=== PATIENT | male | born 1980 | race Hispanic/Latino ===

== ENCOUNTER 2020-09-23 02:40 | Emergency (ER) | payer OTHER ==
[2020-09-23 03:36] LABS: Absolute Lymphocytes (CBC) 1.8 K/uL (0.7-4.9); Basophils % 0.7 % (0-1.3); Hematocrit 42.9 % (39.6-49.0); Lymphocytes % 25.8 % (15.3-44.8); MPV 7.2 fL (7.6-11.3); RBC Red Blood Cell Count 4.83 M/uL (4.33-5.43)
[2020-09-23 03:45] LABS: BUN Blood Urea Nitrogen 19 mg/dL (7-18); Bicarbonate 28 mmol/L (21-32); Glucose Level 96 mg/dL (74-106); NT PRO-BNP 20 pg/mL (<125); Sodium Level 139 mmol/L (136-145); Troponin (Emerg Dept Use Only) < 0.02 ng/mL (0.0-0.045)
--- NOTE | 2020-09-23 04:00 | ER ---
Nurse's Notes [facility] Name: Davonte Ramon Age: 39 yrs Sex: Male : 1980 Arrival Date: 09/23/2020 Time: 02:45 Bed 18 Private MD: Diagnosis: Chest pain, unspecified Presentation: 09/23 03:02 Chief complaint: Patient states: i have chest pain radiating to my upper back in mg2 between my shoulder blades since 2 am tonight. i had heavy workout yesterday. Coronavirus screen: Client denies travel out of the [place] in the last 14 days. At this time, the client does not indicate any symptoms associated with coronavirus-19. Ebola Screen: No symptoms or risks identified at this time. Initial Sepsis Screen: Does the patient meet any 2 criteria? No. Patient's initial sepsis screen is negative. Does the patient have a suspected source of infection? No. Patient's initial sepsis screen is negative. Risk Assessment: Do you want to hurt yourself or someone else? Patient reports no desire to harm self or others. Onset of symptoms was September 23, 2020. 03:02 Method Of Arrival: Ambulatory mg2 03:02 Acuity: MARKELL 3 mg2 Triage Assessment: 03:14 General: Appears in no apparent distress. comfortable, Behavior is calm, cooperative. mg2 Pain: Complains of pain in chest Pain radiates to back Pain currently is 1 out of 10 on a pain scale. Quality of pain is described as aching, Pain began gradually, 1 hour ago. EENT: No signs and/or symptoms were reported regarding the EENT system. Neuro: Level of Consciousness is awake, alert, obeys commands, Oriented to person, place, time, situation. Cardiovascular: Capillary refill < 3 seconds Patient's skin is warm and dry. Cardiovascular: Reports chest pain. Respiratory: Airway is patent Respiratory effort is even, unlabored, Respiratory pattern is regular, symmetrical. GI: No signs and/or symptoms were reported involving the gastrointestinal system. : No signs and/or symptoms were reported regarding the genitourinary system. Derm: Skin is intact, is healthy with good turgor, Skin is pink, warm \T\ dry. normal. Musculoskeletal: Circulation, motion, and sensation intact. Capillary refill < 3 seconds. Historical: - Allergies: 03:15 No Known Allergies; mg2 - Home Meds: 03:15 Fluoxetine Oral [Active]; mg2 - PMHx: 03:15 Anxiety; mg2 - PSHx: 03:15 knee sx; mg2 - Immunization history:: Flu vaccine status is unknown. - Social history:: Smoking status: unknown. - Family history:: not pertinent. - Hospitalizations: : No recent hospitalization is reported. Screenin:16 Abuse screen: Denies threats or abuse. Denies injuries from another. Nutritional mg2 screening: No deficits noted. Tuberculosis screening: No symptoms or risk factors identified. Fall Risk IV access (20 points). Assessment: 03:15 Reassessment: see triage note. mg2 04:20 Reassessment: Patient appears in no apparent distress at this time. Patient is alert, mg2 oriented x 3, equal unlabored respirations, skin warm/dry/pink. Vital Signs: 03:02 BP 126 / 87; Pulse 62; Resp 18; Temp 97.9; Pulse Ox 97% on R/A; mg2 04:20 BP 109 / 74; Pulse 60; Resp 18; Temp 98; Pulse Ox 100% on R/A; mg2 ED Course: 02:45 Patient arrived in ED. cl3 02:50 Keyon Benavidez MD is Attending Physician. rn 02:54 Hussain Hays, APARNA is Primary Nurse. mg2 03:02 Triage completed. mg2 03:15 Arm band placed on. mg2 03:16 Patient has correct armband on for positive identification. quality assurance monitor chassis on. Pulse mg2 ox on. NIBP on. Door closed. 03:16 No provider procedures requiring assistance completed. Inserted saline lock: 20 gauge mg2 in right antecubital area, using aseptic technique. Blood collected. 03:16 Patient maintains SpO2 saturation greater than 95% on room air. mg2 03:53 XRAY Chest (1 view) In Process Unspecified. EDMS 04:20 IV discontinued, intact, bleeding controlled, No redness/swelling at site. Pressure mg2 dressing applied. Administered Medications: No medications were administered Outcome: 03:59 Discharge ordered by . rn 04:21 Discharged to home ambulatory. mg2 04:21 Condition: stable 04:21 Discharge instructions given to patient, Instructed on discharge instructions, follow up and referral plans. Demonstrated understanding of instructions, follow-up care. 04:21 Patient left the ED. mg2 Signatures: Dispatcher [employer] EDMS Benavidez, Keyon, MD MD rn Hussain Hays RN RN mg2 Marixa Gray cl3 Corrections: (The following items were deleted from the chart) 03: 03:02 Chief complaint: Patient states: i have chest pain mg2 mg2 03:14 03:02 BP 126 / 87; Pulse 62bpm; Resp 18bpm; Pulse Ox 97% RA; mg2 mg2
--- NOTE | 2020-09-23 04:00 | EDPHYS ---
Physician Documentation [facility] Name: Davonte Ramon Age: 39 yrs Sex: Male : 1980 Arrival Date: 09/23/2020 Time: 02:45 Bed 18 Private MD: ED Physician Keyon Benavidez HPI: 09/23 03:16 This 39 yrs old Male presents to ER via Ambulatory with complaints of Chest rn Pain. 03:16 The patient or guardian reports chest pain that is located primarily in the substernal rn area. The pain does not radiate. Associated signs and symptoms: Pertinent negatives: abdominal pain, cough, diaphoresis, dizziness, headache, shortness of breath, syncope, vomiting. The chest pain is described as aching. Duration: The patient or guardian reports a single episode, that is still ongoing. Modifying factors: The symptoms are alleviated by nothing. the symptoms are aggravated by nothing. Severity of pain: At its worst the pain was mild in the emergency department the pain has improved. The patient has experienced a previous episode. The patient has not recently seen a physician. Reports left sided chest pain, dull/achy, not worse with palpation or movement, no fever, doesn't feel ill, no cough/sob. Reports works out a lot and practiced [employer] yesterday. Multiple family members with cardiac problems so decided to play it safe and come in. Already improving on its own. . Historical: - Allergies: 03:15 No Known Allergies; mg2 - Home Meds: 03:15 Fluoxetine Oral [Active]; mg2 - PMHx: 03:15 Anxiety; mg2 - PSHx: 03:15 knee sx; mg2 - Immunization history:: Flu vaccine status is unknown. - Social history:: Smoking status: unknown. - Family history:: not pertinent. - Hospitalizations: : No recent hospitalization is reported. ROS: 03:16 Constitutional: Negative for fever, chills, and weight loss, Eyes: Negative for injury, rn pain, redness, and discharge, Neck: Negative for injury, pain, and swelling, Cardiovascular: + chest pain, neg for palpitations Respiratory: Negative for shortness of breath, cough, wheezing, and pleuritic chest pain, Abdomen/GI: Negative for abdominal pain, nausea, vomiting, diarrhea, and constipation, Back: Negative for injury and pain, MS/Extremity: Negative for injury and deformity, Skin: Negative for injury, rash, and discoloration, Neuro: Negative for headache, weakness, numbness, tingling, and seizure. Exam: 03:16 Constitutional: This is a well developed, well nourished patient who is awake, alert, rn and in no acute distress. Head/Face: Normocephalic, atraumatic. Chest/axilla: Normal chest wall appearance and motion. Nontender with no deformity. No lesions are appreciated. Cardiovascular: Regular rate and rhythm. No pulse deficits. Respiratory: No increased work of breathing, no retractions or nasal flaring. Abdomen/GI: soft, non-tender Skin: Warm, dry with normal turgor. Normal color with no rashes, no lesions, and no evidence of cellulitis. MS/ Extremity: Pulses equal, no cyanosis. Neurovascular intact. Full, normal range of motion. Equal circumference. Neuro: Awake and alert, GCS 15 Vital Signs: 03:02 BP 126 / 87; Pulse 62; Resp 18; Temp 97.9; Pulse Ox 97% on R/A; mg2 04:20 BP 109 / 74; Pulse 60; Resp 18; Temp 98; Pulse Ox 100% on R/A; mg2 MDM: 02:50 Patient medically screened. rn 03:57 Differential diagnosis: chest wall pain, costochondritis, esophagitis, gastritis, rn gastroesophageal reflux disease (GERD), pleurisy, pneumothorax, pulmonary embolus, chest wall pain, muscular injury, strain. Data reviewed: vital signs, nurses notes, lab test result(s), EKG, radiologic studies, plain films, and as a result, I will discharge patient. Counseling: I had a detailed discussion with the patient and/or guardian regarding: the historical points, exam findings, and any diagnostic results supporting the discharge/admit diagnosis, lab results, radiology results, the need for outpatient follow up, to return to the emergency department if symptoms worsen or persist or if there are any questions or concerns that arise at home. Special discussion: I discussed with the patient/guardian in detail that at this point there is no indication for admission to the hospital. It is understood, however, that if the symptoms persist or worsen the patient needs to return immediately for re-evaluation. 09/23 02:59 Order name: Basic Metabolic Panel rn 09/23 02:59 Order name: CBC with Diff; Complete Time: 03:56 rn 09/23 02:59 Order name: NT PRO-BNP; Complete Time: 03:56 rn 09/23 02:59 Order name: Troponin (emerg Dept Use Only); Complete Time: 03:56 rn 09/23 02:59 Order name: D-Dimer; Complete Time: 03:56 rn 09/23 02:59 Order name: Basic Metabolic Panel; Complete Time: 03:56 EDMS 09/23 02:59 Order name: XRAY Chest (1 view) rn 09/23 02:59 Order name: EKG; Complete Time: 02:59 rn 09/23 02:59 Order name: Cardiac monitoring; Complete Time: 03:18 rn 09/23 02:59 Order name: EKG - Nurse/Tech; Complete Time: 03:18 rn 09/23 02:59 Order name: IV Saline Lock; Complete Time: 03:18 rn 09/23 02:59 Order name: Labs collected and sent; Complete Time: 03:18 rn 09/23 02:59 Order name: O2 Per Protocol; Complete Time: 03:18 rn 09/23 02:59 Order name: O2 Sat Monitoring; Complete Time: 03:18 rn Administered Medications: No medications were administered Disposition: 09/23/20 03:59 Discharged to Home. Impression: Chest pain, unspecified. - Condition is Stable. - Discharge Instructions: Nonspecific Chest Pain, Chest Wall Pain. - Medication Reconciliation Form, Thank You Letter, Antibiotic Education, Prescription Opioid Use form. - Follow up: Private Physician; When: As needed; Reason: Recheck today's complaints, Re-evaluation by your physician. - Problem is new. - Symptoms have improved. Signatures: Dispatcher [employer] EDMS Keyon Benavidez MD MD rn Gardose, Michele, RN RN mg2 Corrections: (The following items were deleted from the chart) 04:21 03:59 09/23/2020 03:59 Discharged to Home. Impression: Chest pain, unspecified. mg2 Condition is Stable. Forms are Medication Reconciliation Form, Thank You Letter, Antibiotic Education, Prescription Opioid Use. Follow up: Private Physician; When: As needed; Reason: Recheck today's complaints, Re-evaluation by your physician. Problem is new. Symptoms have improved. rn
--- NOTE | 2020-09-23 06:52 | EKG ---
Test Date: 2020-09-23 Test Time: 03:04:46 Terminal Operations Supervisor: AMY MEASUREMENT RESULTS: Intervals: Rate: 64 OR: 174 QRSD: 82 QT: 382 QTc: 394 [place]: P: 57 OR: 174 QRS: 51 T: 74 INTERPRETIVE STATEMENTS: Normal sinus rhythm Nonspecific T wave abnormality Abnormal ECG Compared to ECG 11/08/2012 10:05:05 T-wave abnormality now present Electronically Signed On 09-23-20 06:51:20 CDT by Ritchie Robles
--- NOTE | 2020-09-23 13:47 | RAD REPORT ---
EXAM DESCRIPTION: RAD - Chest Single View - 09/23/2020 3:53 am COMPARISON: None. CLINICAL HISTORY: [facility] MAIN CHEST PAIN FINDINGS: A single AP view of the chest demonstrates a normal cardiomediastinal silhouette. No pneumothorax or pleural effusion. No consolidation or pulmonary edema. Osseous structures are intact. IMPRESSION: No acute chest process. Electronically signed by: Jet Lizarraga MD 09/23/2020 4:01 AM CDT Due to temporary technical issues with the PACS/Fluency reporting system, reports are being signed by the in house radiologists without review as a courtesy to insure prompt reporting. The interpreting radiologist is fully responsible for the content of the report.
[2020-09-23 16:29] VITALS: BP 109/74; TEMP 98; O2SAT 100
== END 2020-09-23 04:21 | disposition home or self-care (01) ==
LOC: ER 02:40
DX: R07.9 Chest pain, unspecified (principal); F41.9 Anxiety disorder, unspecified
CPT/HCPCS: 36415; 71045; 80048; 83880; 84484; 85025; 85379; 93005; 99285

== ENCOUNTER 2023-03-28 22:21 | Emergency (ER) | payer OTHER, SELFPAY ==
--- OUTSIDE RECORDS SUMMARY | 2023-03-28 22:24 | XMS REPORT | Continuity of Care Document ---
:1980 [address] [facility] t Address [address] [place] [address] [place] [id number] Care Team Providers Name Role Phone ADONIS MILLER Attending Clinician Unavailable LAB90 Attending Clinician Unavailable KAYODE SHAFER Attending Clinician Unavailable PARRIS WALKER Attending Clinician Unavailable Payers Payer Name Policy Type Policy Number Effective Date Expiration Date S fanny [employer] 9 [id number] 2022 BRONZE: O ON 00:00:00 STANDARD Problems This patient has no known problems. Allergies, Adverse Reactions, Alerts This patient has no known allergies or adverse reactions. Medications This patient has no known medications. Procedures This patient has no known procedures. Encounters Start End Encounter Admission Attending Care Care Encounter Source Date/Time Date/Time Type Type Clinicians Facility Department ID 2023-05-11 2023-05-11 Outpatient CHARLINE MILLER [id number] [place] 09:30:00 09:30:00 ADONIS cummings 2023-02-05 2023-02-05 Outpatient LAB90 CHARLINE OLIVIER [id number] [place] 11:50:00 11:50:00 Jairo cummings 2023-02-05 2023-02-05 Outpatient CHARLINE SHAFER [id number] [place] 11:00:00 11:00:00 KAYODE cummings 2022-12-19 2022-12-19 Outpatient CHARLINE WALKER [id number] [place] 09:15:00 09:15:00 PARRIS cummings Results This patient has no known results.
[2023-03-28] MEDS ORDERED: CEPHALEXIN 250 MG CAP ONE (22:51)
[2023-03-28] MEDS ORDERED: KETOROLAC 30 MG/ML INJ ONE (22:51)
[2023-03-28] MEDS ORDERED: SMZ./TMP. 800/160 MG TABLET ONE (22:53)
--- NOTE | 2023-03-28 23:37 | EDPHYS ---
Physician Documentation [facility] Name: Davonte Ramon Age: 42 yrs Sex: Male : 1980 Arrival Date: 03/28/2023 Time: 22:21 Bed 6 Private MD: ED Physician Gulshan Rose HPI: 03/28 22:56 This 42 yrs old Male presents to ER via Ambulatory with complaints of Knee kb Pain. 22:56 the patient presents with a swollen area of the right knee. Description: erythematous, kb swollen. Onset: The symptoms/episode began/occurred yesterday. Possible cause(s): unknown. Associated signs and symptoms: Pertinent positives: erythema, swelling, Pertinent negatives: fever. Modifying factors: the symptoms are alleviated by nothing, the symptoms are aggravated by pressure. Severity of symptoms: At their worst the symptoms were moderate, in the emergency department the symptoms are unchanged. The patient has not experienced similar symptoms in the past. The patient has not recently seen a physician. Pt reports right knee pain that started yesterday. States he has had increased swelling and redness to knee today. Was in a grappling match over the weekend so he isn't sure if he injured his knee or got an infection from the mats. . Historical: - Allergies: 22:35 No Known Allergies; cm10 - PMHx: 22:35 Anxiety; cm10 - Immunization history:: Adult Immunizations up to date. - Social history:: Smoking status: Patient denies any tobacco usage or history of. ROS: 22:54 Constitutional: Negative for fever, chills, and weight loss, kb 22:54 MS/extremity: Positive for pain, 22:54 Skin: Positive for erythema, swelling, of the right knee, 22:54 All other systems are negative, Exam: 22:54 Constitutional: This is a well developed, well nourished patient who is awake, alert, kb and in no acute distress. Head/Face: Normocephalic, atraumatic. ENT: Moist Mucous membranes Cardiovascular: Regular rate Respiratory: Respirations even and unlabored. No increased work of breathing. Talking in full sentences MS/ Extremity: Pulses equal, no cyanosis. Neurovascular intact. Full, normal range of motion. Neuro: Awake and alert, GCS 15, oriented to person, place, time, and situation. Moves all extremities. Normal gait. 22:54 Skin: cellulitis, that is moderate, on the right knee, Vital Signs: 22:34 BP 129 / 81; Pulse 75; Resp 16 S; Temp 97.9(O); Pulse Ox 100% on R/A; Weight 97.52 kg cm10 (R); Height 5 ft. 10 in. (R); Pain 10; 03/29 00:00 BP 126 / 68; Pulse 71; Resp 16; Pulse Ox 100% on R/A; jb4 03/28 22:34 Body Mass Index 30.85 (97.52 kg, 177.8 cm) cm10 03/28 22:34 Pain Scale: Adult cm10 MDM: 03/28 22:27 Patient medically screened. kb 22:51 Differential diagnosis: contusion, fracture, cellulitis, joint infection. Data kb reviewed: vital signs, nurses notes. Test considered but Not performed: Labs: cbc, bmp considered, but pt is nontoxic in appearance and afebrile. 22:59 ED course: Pt has no pain in the joint, septic joint not expected at this time. Full kb ROM, but feels tightness to skin when he bends the knee. 23:21 Counseling: I had a detailed discussion with the patient and/or guardian regarding the kb historical points, exam findings, and any diagnostic results supporting the discharge/admit diagnosis, radiology results, the need for outpatient follow up, a family practitioner, to return to the emergency department if symptoms worsen or persist or if there are any questions or concerns that arise at home. 03/28 22:30 Order name: Knee Right 3 View XRAY kb Administered Medications: 22:43 Drug: Trimethoprim-Sulfamethoxazole PO (160 mg-800 mg (DS) 1 tablet PO once Route: PO; bp 22:43 Drug: Ketorolac IM 30 mg IM once Route: IM; Site: right deltoid; bp 22:44 Drug: Cephalexin PO 500 mg PO once Route: PO; bp Disposition: 03/29 00:09 Co-signature as Attending Physician, Gulshan Rose MD I agree with the assessment sp4 and plan of care. I reviewed the patient's care provided by the Advanced Practice Provider and agree with the diagnosis and treatment plan. Disposition Summary: 03/28/23 23:36 Discharge Ordered Notes: Location: Home kb Condition: Stable kb Diagnosis - Cellulitis of right lower limb kb Followup: kb - With: Emergency Department - When: As needed - Reason: Worsening of condition Followup: kb - With: Private Physician - When: 2 - 3 days - Reason: Recheck today's complaints, Continuance of care, Re-evaluation by your physician Discharge Instructions: - Discharge Summary Sheet kb - Cellulitis, Adult, [id number] kb Forms: - Medication Reconciliation Form kb - Thank You Letter kb - Antibiotic Education kb - Prescription Opioid Use kb - Patient Portal Instructions kb - Leadership Thank You Letter kb Prescriptions: - Cephalexin 500 mg Oral Capsule - take 1 capsule ORAL route every 8 hours for 10 days; 30 capsule; Refills: 0, kb Product Selection Permitted - Diclofenac Sodium 75 mg Oral tablet, delayed release (enteric coated) - take 1 tablet ORAL route 2 times per day As needed; 30 tablet; Refills: 0, kb Product Selection Permitted - Bactrim DS 800-160 mg Oral Tablet - take 1 tablet ORAL route every 12 hours for 10 days; 20 tablet; Refills: 0, kb Product Selection Permitted Signatures: Dispatcher [employer] EDShae Smith, EMPLOYEE HEALTH NURSE-C EMPLOYEE HEALTH NURSE-Cooper Ramirez, RN RN bp Gulshan Rose MD MD sp4 Rosa Elena London RN RN cm10
--- NOTE | 2023-03-28 23:37 | ER ---
Nurse's Notes [facility] Name: Davonte Ramon Age: 42 yrs Sex: Male : 1980 Arrival Date: 03/28/2023 Time: 22:21 Bed 6 Private MD: Diagnosis: Cellulitis of right lower limb Presentation: 03/28 22:34 Chief complaint: Patient states: right knee pain onset 2 days ago that got worse today. cm10 Pt noted to have redness and swelling to right knee. Coronavirus screen: Vaccine status: Patient reports being unvaccinated. Client denies travel out of the [place] in the last 14 days. Ebola Screen: Patient denies travel to an Ebola-affected area in the 21 days before illness onset. No symptoms or risks identified at this time. Initial Sepsis Screen: Does the patient meet any 2 criteria? No. Patient's initial sepsis screen is negative. Does the patient have a suspected source of infection? No. Patient's initial sepsis screen is negative. Risk Assessment: Do you want to hurt yourself or someone else? Patient reports no desire to harm self or others. Onset of symptoms was March 28, 2023. 22:34 Method Of Arrival: Ambulatory cm10 22:34 Acuity: MARKELL 3 cm10 Historical: - Allergies: 22:35 No Known Allergies; cm10 - PMHx: 22:35 Anxiety; cm10 - Immunization history:: Adult Immunizations up to date. - Social history:: Smoking status: Patient denies any tobacco usage or history of. Screenin/05 00:00 [facility] ED Fall Risk Assessment (Adult) History of falling in the last 3 months, jb4 including since admission No falls in past 3 months (0 pts) Confusion or Disorientation No (0 pts) Score/Fall Risk Level 0 - 2 = Low Risk Oriented to surroundings, Maintained a safe environment. Abuse screen: Denies threats or abuse. Nutritional screening: No deficits noted. Tuberculosis screening: No symptoms or risk factors identified. Assessment: 00:00 Reassessment: Patient appears in no apparent distress at this time. Patient and/or jb4 family updated on plan of care and expected duration. Pain level reassessed. Patient is alert, oriented x 3, equal unlabored respirations, skin warm/dry/pink. Patient states feeling better. Vital Signs: 03/28 22:34 BP 129 / 81; Pulse 75; Resp 16 S; Temp 97.9(O); Pulse Ox 100% on R/A; Weight 97.52 kg cm10 (R); Height 5 ft. 10 in. (R); Pain 04/03; 03/29 00:00 BP 126 / 68; Pulse 71; Resp 16; Pulse Ox 100% on R/A; jb4 03/28 22:34 Body Mass Index 30.85 (97.52 kg, 177.8 cm) cm10 03/28 22:34 Pain Scale: Adult cm10 ED Course: 03/28 22:25 Patient arrived in ED. ag3 22:26 Shae Ceballos FNP-C is [facility]. kb 22:26 Gulshan Rose MD is Attending Physician. kb 22:27 Cooper Mcarthur, APARNA is Primary Nurse. bp 22:35 Triage completed. cm10 22:35 Arm band placed on Patient placed in an exam room, on a stretcher. cm10 23:04 Knee Right 3 View XRAY In Process Unspecified. EDMS 03/29 00:00 Patient has correct armband on for positive identification. Bed in low position. Call jb4 light in reach. Side rails up X 1. Client placed on continuous cardiac and pulse oximetry monitoring. NIBP monitoring applied. 00:00 No provider procedures requiring assistance completed. Patient did not have IV access jb4 during this emergency room visit. Administered Medications: 03/28 22:43 Drug: Trimethoprim-Sulfamethoxazole PO (160 mg-800 mg (DS) 1 tablet PO once Route: PO; bp 22:43 Drug: Ketorolac IM 30 mg IM once Route: IM; Site: right deltoid; bp 22:44 Drug: Cephalexin PO 500 mg PO once Route: PO; bp Medication: 03/29 00:00 VIS not applicable for this client. jb4 Outcome: 03/28 23:36 Discharge ordered by . kb 03/29 00:00 Discharged to home ambulatory, with family, jb4 Condition: stable Discharge instructions given to patient, Instructed on discharge instructions, follow up and referral plans. medication usage, Demonstrated understanding of instructions, follow-up care, medications, Prescriptions given X 3, 00:02 Patient left the ED. jb4 Signatures: Dispatcher [employer] EDMN Shae Ceballos FNP-C FNP-Ckb Raheem Rogel, RN RN jb4 Cooper Mcarthur, RN RN bp Silvia Martinez ag3 Rosa Elena London, APARNA RN cm10
[2023-03-29 00:30] VITALS: TEMP 97.9; O2SAT 100
[2023-03-29 00:31] VITALS: BP 126/68
--- NOTE | 2023-03-29 16:08 | RAD REPORT ---
EXAM DESCRIPTION: RAD - Knee Right 3 View - 03/28/2023 11:02 pm CLINICAL HISTORY: 42 years Male PAIN TECHNIQUE: 3 views of the right knee COMPARISON: No prior exams provided for comparison. FINDINGS: There is diffuse subcutaneous edema anterior to the right knee without soft tissue gas or foreign body. There is no acute right knee fracture or dislocation. There is a small suprapatellar emmett int effusion. Prior ACL reconstruction with mild tricompartmental osteophytosis. No aggressive osseous lesion. IMPRESSION: Diffuse emphysematous edema anterior to the right knee could reflect direct trauma, infe ction, or inflammation. No acute fracture or dislocation. Small joint effusion. Prior ACL reconstruction. Electronically signed by: Leonora Taylor MD 03/28/2023 11:28 PM CDT Due to temporary technical issues with the PACS/Fluency reporting system, reports are being signed by the in house radiologists without review as a courtesy to insure prompt reporting. The interpreting radiologist is fully responsible for the content of the report.
== END 2023-03-29 00:02 | disposition home or self-care (01) ==
LOC: ER 22:21
DX: L03.115 Cellulitis of right lower limb (principal)
CPT/HCPCS: 96372; 99284

== ENCOUNTER 2024-06-19 10:54 | Emergency (ER) | payer OTHER ==
--- OUTSIDE RECORDS SUMMARY | 2024-06-19 10:56 | XMS REPORT | Continuity of Care Document ---
Author Name Unknown Address [address] [facility] [address] th[address] Address [address] [facility] [address] [place] [address] Care Team Providers Care [place] Judge Name Role Phone ADONIS MILLER Attending Clinician Unavailab KAYODE Syed Attending Clinician Unava ilSHARYN Moreno Attending Clinician Unavailable LISA SMITH Attending Clinician Unavailable WENDY CHAMPION Attending Clinician Unavailable LAB90 Attending Clinician Unavailable PARRIS WALKER Attending Clinician Unavailable Payers Payer Name Policy Type Policy Number Effective Date Expirati on Date Source [facility] 9 [id number] 2023 00:00:00 Social History Social Habit Start Date Stop Date Quantity Comments Source Sexual orientation Grady Navarro - External Alcohol intake 2023-04-10 00:00:00 2023-04-10 00:00:00 Current drinker of alcohol (finding) Marisol Navarro - External Alcoholic beverage intake 2023-04-10 00:00:00 2023-04-10 00:00:00 Current drinker of alcohol (finding) Marisol Navarro - External History of Social function 2023-03-12 00:00:00 2023-03-12 00:00:00 Marisol Navarro - External Tobacco use and exposure 2023-02-02 00:00:00 2023-02-02 00:00:00 Smokeless tobacco non-user Marisol Navarro - External Alcohol Comment 2023-02-02 00:00:00 2023-02-02 00:00:00 SOCIALLY Marisol Ch Sex [birth year] at 1980 00:00:00 1980 00:00:00 Marisol Ch Smoking Status Start Date Stop Date Source Never smoked tobacco Marisol Ch Medications Ordered Medication Name Filled Medication Name Start Date Stop Date Current Medication? Ordering Clinician Indication Dosage Frequency Signature (SIG) Comments Components Source Testosteron e Cypionate 200 MG/ML injection Solution 07-31 00:00: 00 Yes [id number] 190mg Q1W Inject 190 mg as directed once a week. Marisol asencio TESTOSTERON E IM 2022-06 10:58: 39 Yes 80mg Inject 80 mg into the muscle once a week Marisol asencio Cephalexin 500 MG oral Capsule 2022-06 00:00: 00 Yes Marisol asencio Diclofenac Sodium 75 MG oral Tablet Delayed Response 2022-06 00:00: 00 Yes Marisol asencio TRIMETHOPRI M-SULFAMETH OXAZOLE (BACTRIM DS) 800-160 MG oral Tablet 2022-06 00:00: 00 Yes Marisol asencio Fluoxetine HCl 20 MG oral Tablet 02-05 00:00: 00 Yes [id number] 20mg QD Take 1 tablet (20 mg total) by mouth daily Marisol asencio TESTOSTERON E IM 02-02 10:43: 31 Yes 80mg Inject 80 mg into the muscle once a week Marisol asencio Vital Signs Vital Name Observation Time Observation Value Comments S rahjackelyn Systolic blood pressure 2023-04-10 15:56:00 122 mm[Hg] Marisol asher - External Diastolic blood pressure 2023-04-10 15:56:00 76 mm[Hg] Marisol asher - External Heart rate 2023-04-10 15:56:00 81 /min Malissa Navarro - External Body temperature 2023-04-10 15:56:00 35.94 Eliana Marisol Weaver External Respiratory rate 2023-04-10 15:56:00 15 /min Marisol Navarro - External Body height 2023-04-10 15:56:00 180.3 cm Heidi ey Seybold - External Body weight 2023-04-10 15:56:00 100.699 kg Heidi ey Seybold - External BMI 2023-04-10 15:56:00 30.96 kg/m2 Heidi ey Seybold - External Systolic blood pressure 2023-03-30 18:14:00 127 mm[Hg] Marisol Truongybo ld - External Diastolic blood pressure 2023-03-30 18:14:00 77 mm[Hg] Marisol Truongybo ld - External Heart rate 2023-03-30 18:14:00 92 /min Malissa y Seybold - External Body temperature 2023-03-30 18:14:00 36.61 Eliana Marisol Truongybold - External Respiratory rate 2023-03-30 18:14:00 15 /min Marisol Seybold - External Body height 2023-03-30 18:14:00 180.3 cm Heidi ey Seybold - External Body weight 2023-03-30 18:14:00 100.699 kg Heidi ey Seybold - External BMI 2023-03-30 18:14:00 30.96 kg/m2 Heidi ey Seybold - External Oxygen saturation in Arterial blood by Pulse oximetry 2023-03-30 18:14:00 99 /min Marisol Mcgowan ld - External Encounters Start Date/Time End Date/Time Encounter Type Admission Type Attending [facility] Care Department Encounter ID Source 2024-05-19 00:00:00 2024-05-19 00:00:00 Out[facility] [id number] [facility] 2024-05-12 00:00:00 2024-05-12 00:00:00 Outpatient ADONIS MILLER [id number] Marisol Navarro 2024-02-08 00:00:00 2024-02-08 00:00:00 Outpatient KAYODE SHAFER [id number] Marisol Navarro 2024-01-24 00:00:00 2024-01-24 00:00:00 Outpatient MARISOL OLIVIER [id number] Marisol ybedie 2024-01-21 15:30:00 2024-01-21 15:30:00 Outpatient MARISOL MARISOL [id number] Marisol [facility] 2024-01-16 16:30:00 2024-01-16 16:30:00 Outpatient SHARYN FLORES MARISOL OLIVIER [id number] Marisol [facility] 2023-12-03 00:00:00 2023-12-03 00:00:00 Outpatient PREZAS, LISA MARISOL OLIVIER [id number] Marisol [facility] 2023-10-08 00:00:00 2023-10-08 00:00:00 Outpatient PREZAS, LISA MARISOL OLIVIER [id number] Marisol [facility] 2023-09-21 00:00:00 2023-09-21 00:00:00 Outpatient PREZAS, LISA MARISOL OLIVIER [id number] [facility] 2023-09-20 00:00:00 2023-09-20 00:00:00 Outpatient PREZAS, LISA MARISOL OLIVIER [id number] [facility] 2023-08-29 13:15:00 2023-08-29 13:15:00 Outpatient JAYCEEWENDY MANE [facility]OL [facility] [id number] [facility] 2023-07-31 00:00:00 2023-07-31 00:00:00 Outpatient PREZAS, LISA MARISOL OLIVIER [id number] [facility] 2023-05-13 00:00:00 2023-05-13 00:00:00 Outpatient [facility] [id number] [facility] 2023-05-11 09:30:00 2023-05-11 09:30:00 Outpatient ANGELA ADONIS OLIVIER [id number] [facility] 2023-05-11 00:00:00 2023-05-11 00:00:00 [facility] [id number] [facility]23-05-01 00:00:00 2023-05-01 00:00:00 Outpatient PREZASLISA MARISOL OLIVIER [id number] [facility] 2023-05-01 00:00:00 2023-05-01 00:00:00 Outpatient PREZASLISA MARISOL [id number] Marisol [facility] 2023-04-27 00:00:00 2023-04-27 00:00:00 Outpatient PREZAS, LISA OLIVIER MARISOL [id number] Marisol [facility] 2023-04-27 00:00:00 2023-04-27 00:00:00 Outpatient PREZAS, LISA MARISOL OLIVIER [id number] Marisol [facility] 2023-04-27 00:00:00 2023-04-27 00:00:00 Outpatient PREZAS, LISA MARISOL OLIVIER [id number] Marisol [facility] 2023-04-26 00:00:00 2023-04-26 00:00:00 Outpatient ANGELA ADONIS OLIVIER [id number] [facility] 2023-04-25 00:00:00 2023-04-25 00:00:00 Outpatient KAYODE SHAFER [id number] [facility] 2023-04-25 00:00:00 2023-04-25 00:00:00 Outpatient PREZAS, LISA MARISOL OLIVIER [id number] [facility] 2023-04-23 00:00:00 2023-04-23 00:00:00 Outpatient PREZAS, LISA [facility] OLIVIER [id number] [facility] 2023-04-10 11:00:00 2023-04-10 11:00:00 Outpatient ADONIS MILLER [id number] [facility] 2023-04-06 14:00:00 2023-04-06 14:00:00 Outpatient ADONIS MILLER [id number] [facility] 2023-04-02 00:00:00 2023-04-02 00:00:00 Outpatient [facility]ILL[facility] [id number] [facility] 2023-03-30 14:15:00 2023-03-30 14:15:00 Outpatient THANH OLIVIER [id number] [facility] 2023-03-30 13:30:00 2023-03-30 13:30:00 Outpatient ADONIS MILLER [id number] Marisol Navarro 2023-02-05 11:50:00 2023-02-05 11:50:00 Outpatient LAB90 MARISOL OLIVIER [id number] Marisol Navarro 2023-02-05 11:00:00 2023-02-05 11:00:00 Outpatient KAYODE SHAFER [id number] Marisol Navarro 2022-12-19 09:15:00 2022-12-19 09:15:00 Outpatient PARRIS WALKER [id number] Marisol Navarro
--- NOTE | 2024-06-19 12:06 | RAD REPORT ---
EXAMINATION: US RIGHT LOWER EXTREMITY VENOUS DOPPLER CLINICAL INDICATION: [facility] MA[facility] RLE eval for RLE DVT Bed Name: IW1 N TECHNIQUE: Complete bilateral duplex sonography of the RIGHT lower extremity veins was performed. The examination included compression for vein patency, color Doppler imaging and flow augmentation in response to distal compression of the distal external iliac, common femoral, femoral, popliteal, tibi al, and great and small saphenous veins. COMPARISON: 04/28/2014 FINDINGS: Duplex sonography testing of the veins of the LEFT lower extremity was performed. Noncompressibility with hypoechoic acute appearing thrombus present along the distal superficial femoral vein, extending along the popliteal vein, and one of the paired posterior tibial veins. Pulsatile and phasi c flow is preserved within the more proximal lower extremity deep veins, and superficial veins. IMPRESSION: Acute appearing deep venous thrombosis extending from the distal superficial femoral vein to the leve l of the posterior tibial veins. THIS REPORT CONTAINS FINDINGS THAT MAY BE CRITICAL TO PATIENT CARE. The findings were verbally commun icated via telephone patient's ER nurse Raquel Quiñonez, to be communicated to Marv Oates M.D. on 06/19/2024 11:53 AM.
[2024-06-19 12:25] LABS: Absolute Eosinophils 0.2 K/uL (0-0.5); Absolute Lymphocytes (CBC) 1.5 K/uL (0.7-4.9); Absolute Monocytes 0.8 K/uL (0.1-1.3); Absolute Neutrophil 6.5 K/uL (1.8-8.0); Basophils % 0.4 % (0-1.3); Eosinophils % 2.7 % (0-4.4); Hematocrit 49.3 % (39.6-49.0); Hemoglobin 17.1 g/dL (13.6-17.9); Lymphocytes % 16.1 % (15.3-44.8); MCHC 34.6 g/dL (32.0-36.0); MCV 92.3 fL (80-100); MPV 6.8 fL (7.6-11.3); Monocytes % 8.9 % (3.3-12.3); Neutrophils % 71.9 % (41.7-73.7); Platelets 226 thou/uL (152-406); RBC Red Blood Cell Count 5.34 M/uL (4.33-5.43); Red Cell Distribution Width 13.1 % (12.1-15.2)
[2024-06-19 12:40] LABS: Anion Gap 5.1 mEq/L (5.0-15.0); Potassium 4.1 mEq/L (3.5-5.1)
--- NOTE | 2024-06-19 12:44 | ER ---
Nurse's Notes [facility] Name: Davonte Blanca Age: 43 yrs Sex: Male : 1980 Arrival Date: 06/19/2024 Time: 10:54 Bed 15 Private MD: Diagnosis: Deep Venous Thrombosis of the Left Lower Extremity Presentation: 06/19 11:09 Chief complaint: Patient states: right calf pain and swelling onset 1 week ago. pt cm10 states that the pain is radiating to his thigh now. pt states that he had worked out prior to the pain starting. Coronavirus screen: Client denies travel out of the [place] in the last 14 days. Ebola Screen: Patient denies travel to an Ebola-affected area in the 21 days before illness onset. No symptoms or risks identified at this time. Initial Sepsis Screen: Does the patient meet any 2 criteria? No. Patient's initial sepsis screen is negative. Does the patient have a suspected source of infection? No. Patient's initial sepsis screen is negative. Risk Assessment: Do you want to hurt yourself or someone else? Patient reports no desire to harm self or others. Onset of symptoms was June 19, 2024. 11:09 Method Of Arrival: Ambulatory cm10 11:09 Acuity: MARKELL 3 cm10 Triage Assessment: 11:11 General: Appears in no apparent distress. comfortable, Behavior is calm, cooperative. cm10 Neuro: No deficits noted. Level of Consciousness is awake, alert, obeys commands, Oriented to person, place, time, situation, Appropriate for age. Respiratory: No deficits noted. Airway is patent Respiratory effort is even, unlabored, Respiratory pattern is regular, symmetrical. Historical: - Allergies: 11:11 No Known Allergies; cm10 - PMHx: 11:11 Anxiety; cm10 - Immunization history:: Adult Immunizations up to date. - Infectious Disease History:: Denies. - Social history:: Smoking status: unknown. Screenin:22 [facility] ED Fall Risk Assessment (Adult) History of falling in the last 3 months, ph including since admission No falls in past 3 months (0 pts) Confusion or Disorientation No (0 pts) Intoxicated or Sedated No (0 pts) Impaired Gait No (0 pts) Mobility Assist Device Used No (0 pt) Altered Elimination No (0 pt) Score/Fall Risk Level 0 - 2 = Low Risk Oriented to surroundings, Maintained a safe environment, Hourly rounding (assess needs \T\ fall precautionary measures) done. Abuse screen: Denies threats or abuse. Denies injuries from another. Nutritional screening: No deficits noted. Tuberculosis screening: No symptoms or risk factors identified. Assessment: 12:25 General: Appears in no apparent distress. comfortable, well groomed, well developed, ph Behavior is calm, cooperative, appropriate for age. Pain: Complains of pain in right calf. Neuro: Level of Consciousness is awake, alert, obeys commands, Oriented to person, place, time, situation. Cardiovascular: Capillary refill < 3 seconds in bilateral fingers Patient's skin is warm and dry. Respiratory: Airway is patent Respiratory effort is even, unlabored. Derm: Skin is pink, warm \T\ dry. 13:15 Reassessment: Patient appears in no apparent distress at this time. Patient and/or ph family updated on plan of care and expected duration. Pain level reassessed. Patient is alert, oriented x 3, equal unlabored respirations, skin warm/dry/pink. Vital Signs: 11:09 BP 133 / 94; Pulse 84; Resp 16; Temp 97.6; Pulse Ox 98% ; Weight 99.79 kg; Height 5 ft. cm10 10 in. ; Pain 7/10; 12:26 BP 139 / 86; Pulse 78; Resp 18; Pulse Ox 99% on R/A; ph 13:15 BP 119 / 80; Pulse 71; Resp 18; Temp 97.2; Pulse Ox 98% on R/A; ph 11:09 Body Mass Index 31.57 (99.79 kg, 177.8 cm) cm10 11:09 Pain Scale: Adult cm10 ED Course: 10:57 Patient arrived in ED. mr 11:00 Marv Oates MD is Attending Physician. ec2 11:11 Triage completed. cm10 11:11 Arm band placed on right wrist. Patient placed in waiting room. cm10 11:54 Jeanne Magana, RN is Primary Nurse. ph 11:58 Extremity Venous Uni Ltd US In Process Unspecified. EDMS 12:25 Initial lab(s) drawn, by me, sent to lab. Inserted saline lock: 20 gauge in right ph forearm, using aseptic technique. Blood collected. Flushed with 10 mL NS. 12:27 Patient has correct armband on for positive identification. Bed in low position. Call ph light in reach. Side rails up X 1. Pulse ox on. NIBP on. Door closed. Noise minimized. Warm blanket given. PO fluids given. 12:27 No provider procedures requiring assistance completed. ph 12:27 Ptt, Activated Sent. ph 12:27 PT-INR Sent. ph 12:27 BMP Sent. ph 12:27 CBC with Diff Sent. ph 13:16 IV discontinued, intact, bleeding controlled, No redness/swelling at site. Pressure ph dressing applied. Administered Medications: No medications were administered Medication: 12: VIS not applicable for this client. ph Outcome: 12:43 Discharge ordered by MD. ec2 13:16 Discharged to home ambulatory, ph 13:16 Condition: good 13:16 Discharge instructions given to patient, Instructed on discharge instructions, follow up and referral plans. medication usage, Demonstrated understanding of instructions, follow-up care, medications, Prescriptions given X 1, 13:16 Patient left the ED. ph Signatures: Dispatcher [employer] EDSC Anna Velez, Reg Reg mr Jeanne Magana, RN RN ph Rosa Elena London, RN RN cm10 Marv Oates MD MD ec2 Corrections: (The following items were deleted from the chart) 11:12 11:09 Acuity: MARKELL 4 cm10 cm10
--- NOTE | 2024-06-19 12:44 | EDPHYS ---
Physician Documentation [facility] Name: Davonte Blanca Age: 43 yrs Sex: Male : 1980 Arrival Date: 06/19/2024 Time: 10:54 Bed 15 Private MD: ED Physician Marv Oates HPI: 06/19 11:13 This 43 yrs old Male presents to ER via Ambulatory with complaints of Right, ec2 Leg Swelling. 11:13 Patient arrives today for evaluation of right lower extremity swelling. Reports that he ec2 has noticed some right calf tightness as well as cramping in the thigh. States that he feels like his leg is taut. Patient reports some prominent vasculature as well. No falls injuries or trauma. No history of DVT. No fevers or chills.. Historical: - Allergies: 11:11 No Known Allergies; cm10 - PMHx: 11:11 Anxiety; cm10 - Immunization history:: Adult Immunizations up to date. - Infectious Disease History:: Denies. - Social history:: Smoking status: unknown. ROS: 11:13 Constitutional: as per hpi ec2 Exam: 11:13 Constitutional: GEN: NAD Head: atraumatic Eyes: EOMI Ears: External ears are ec2 normal. CV: regular rate LUNGS: no respiratory distress ABD: non-distended SKIN: Right lower extremity with trace edema noted, prominent vasculature in the medial calf, general tightness appreciated, intact distal neurovascular status noted. No redness or erythema or warmth MSK: no evidence of trauma Vital Signs: 11:09 BP 133 / 94; Pulse 84; Resp 16; Temp 97.6; Pulse Ox 98% ; Weight 99.79 kg; Height 5 ft. cm10 10 in. ; Pain 7/10; 12:26 BP 139 / 86; Pulse 78; Resp 18; Pulse Ox 99% on R/A; ph 13:15 BP 119 / 80; Pulse 71; Resp 18; Temp 97.2; Pulse Ox 98% on R/A; ph 11:09 Body Mass Index 31.57 (99.79 kg, 177.8 cm) cm10 11:09 Pain Scale: Adult cm10 MDM: 11:09 Medical Screening Exam initiated ec2 11:13 Data reviewed: vital signs, nurses notes. ED course: Patient arrives today for ec2 evaluation of right lower extremity swelling. Examination yields right lower extremity findings as above. Will obtain lab work, ultrasound. Differential includes Henderson's cyst, DVT. Doubt cellulitis given examination. 12:00 ED course: Positive for DVT, pending lab work, will start the patient on ec2 anticoagulation. Patient also on testosterone replacement therapy as well.. 12:43 ED course: Labs nonactionable. Restart the patient on anticoagulation.. ec2 06/19 11:13 Order name: CBC with Diff; Complete Time: 12:43 ec2 06/19 11:13 Order name: BMP; Complete Time: 12:43 ec2 06/19 11:13 Order name: PT-INR; Complete Time: 12:50 ec2 06/19 11:13 Order name: Ptt, Activated; Complete Time: 12:50 ec2 06/19 11:13 Order name: Extremity Venous Uni Ltd US; Complete Time: 12:13 ec2 Administered Medications: No medications were administered Disposition Summary: 06/19/24 12:43 Discharge Ordered Notes: Location: Home ec2 Condition: Stable ec2 Diagnosis - Deep Venous Thrombosis of the Left Lower Extremity ec2 Followup: ec2 - With: Private Physician - When: - Reason: Re-evaluation by your physician Discharge Instructions: - Discharge Summary Sheet ec2 - Deep Vein Thrombosis ec2 Forms: - Medication Reconciliation Form ec2 - Antibiotic Education ec2 - Prescription Opioid Use ec2 - Patient Portal Instructions ec2 - Leadership Thank You Letter ec2 Prescriptions: - Eliquis DVT-PE Treat 30D Start 5 mg (74 tabs) Oral Tablet, Dose Pack - take 1 unit ORAL route per package directions; 1 unit; Refills: 0, Product ec2 Selection Permitted Signatures: Dispatcher [employer] Rosa Elena Iglesias, APARNA RN cm10 Marv Oates MD MD ec2
[2024-06-19 12:49] LABS: PTT, Activated Partial Thromb 73.1 SECONDS (24.3-36.9)
[2024-06-19 12:50] LABS: PT Prothrombin Time 11.8 SECONDS (9.4-12.5); Protime INR 1.06
[2024-06-19 13:38] VITALS: BP 119/80; TEMP 97.2; O2SAT 98
== END 2024-06-19 13:16 | disposition home or self-care (01) ==
LOC: ER 10:54
DX: I82.411 Acute embolism and thrombosis of right femoral vein (principal)
CPT/HCPCS: 36415; 80048; 85025; 85610; 85730; 93971; 99284